=== PATIENT | female | born 1980 | race Caucasian/White ===

== ENCOUNTER 2017-11-04 08:00 | Emergency (ER) | payer OTHER ==
[2017-11-04 08:07] VITALS: BP 148/86; PULSE 123; TEMP 100.3; BMI 32.0
--- NOTE | 2017-11-04 08:31 | PDOC ---
History of Present Illness - General Chief Complaint: Abscess Boil Stated Complaint: ABCESS Time Seen by Provider: 11/04/17 08:25 History Source: Patient Exam Limitations: No Limitations - History of Present Illness Initial Comments: 11/04/17 08:25 37-year-old female presents to the ED with complaints of an abscess to her left inner thigh 3 days. Patient initially squeezed it 2 days ago causing it to worsen in size and discomfort. Patient states no history of these in the past and denies history of MRSA. Patient denies fever, chills radiation of pain, or immunosuppression. Severity: moderate Associated Symptoms: reports: denies symptoms Past History - Travel Traveled outside of the country in the last 30 days: No - Past Medical History Allergies/Adverse Reactions: Allergies Allergy/AdvReac Type Severity Reaction Status Date / Time No Known Allergies Allergy Verified 11/04/17 08:05 Home Medications: Ambulatory Orders Dicyclomine HCl [Bentyl] 20 mg PO Q6H PRN #20 tablet 07/13/15 Ibuprofen [Motrin -] 400 mg PO BID PRN 07/13/15 Ondansetron HCl [Zofran] 4 mg PO BID PRN #10 tablet 07/13/15 Cephalexin [Keflex] 500 mg PO BID #14 capsule 11/04/17 COPD: No - Reproductive History LMP Normal: Yes - Suicide/Smoking/Psychosocial Hx Smoking Status: No Smoking History: Never smoked Have you smoked in the past 12 months: No Number of Cigarettes Smoked Daily: 0 Hx Alcohol Use: No Drug/Substance Use Hx: No Substance Use Type: None Patient Lives Alone: No Lives with/in: spouse/SO Review of Systems - Review of Systems Able to Perform ROS?: Yes Constitutional: No: Symptoms Reported ABD/GI: No: Symptoms Reported : No: Symptoms Reported Musculoskeletal: No: Joint Pain Integumentary: Yes: Erythema, Lumps *Physical Exam - Vital Signs Last Vital Signs Temp Pulse Resp BP Pulse Ox 100.3 F H 123 H 20 148/86 99 11/04/17 08:02 11/04/17 08:02 11/04/17 08:02 11/04/17 08:02 11/04/17 08:02 - Physical Exam General Appearance: Yes: Nourished, Appropriately Dressed. No: Apparent Distress Integumentary: positive: Other (Noted 4 x 4 erythematous firm raised localized cellulitic circular mass to left upper inner thigh with firm center without palpable fluctuance or increased warmth.) Neurologic: positive: Motor Strength 5/5 (ambulatory) Medical Decision Making - Medical Decision Making 11/04/17 08:32 Patient here with tender left inner thigh abscess. On exam patient with erythematous firm abscess without palpable fluctuance. Explained to patient she needs to continue with warm soaks and will prescribe antibiotic. I explained to the patient to return to ED if area worsens or needs to be drained. *DC/Admit/Observation/Transfer Diagnosis at time of Disposition: Abscess - Discharge Dispostion Disposition: HOME Condition at time of disposition: Good - Prescriptions Prescriptions: Cephalexin [Keflex] 500 mg PO BID #14 capsule - Referrals Referrals: Francisco Mancilla MD [Primary Care Provider] - - Patient Instructions Printed Discharge Instructions: DI for Skin Abscess Additional Instructions: Please apply warm soaks to the affected area for the next 2-3 days of constant heat for 15 minutes 4 times a day. Take antibiotics until completed. If area worsens or needs to be treated please return to the ED. - Post Discharge Activity Forms/Work/School Notes: Back to Work
== END 2017-11-04 08:42 | disposition home or self-care (01) ==
LOC: JER 08:00 → JERFT 08:00
DX: L02.416 Cutaneous abscess of left lower limb (principal)
CPT/HCPCS: 99281-25

== ENCOUNTER 2020-04-21 11:34 | Emergency (ER) | payer OTHER ==
[2020-04-21 11:47] VITALS: BMI 29.2
[2020-04-21] MEDS ORDERED: SODIUM CHLORIDE 0.9% 1000 ML INFUS.BAG IV ONE (12:09)
[2020-04-21 12:12] LABS: INR 1.08 (0.82-1.09); PROTHROMBIN TIME (PATIENT) 12.1 SEC (10.2-13.0)
[2020-04-21 12:13] LABS: EOS % 0.5 % (0-4.5); HEMATOCRIT 36.8 % (32.4-45.2); HEMOGLOBIN 12.2 GM/dl (10.7-15.3); LYMPH % 24.1 % (8-40); MCH 30.9 pg (25.7-33.7); MCHC 33.1 g/dl (32.0-36.0); MEAN CELL VOLUME 93.5 fl (80-96); MEAN PLT VOLUME 8.6 fl (7.5-11.1); MONO % 6.3 % (3.8-10.2); NEUT % 68.1 % (42.8-82.8); PLATELET COUNT 243 K/MM3 (134-434); RBC 3.93 M/mm3 (3.60-5.2); RDW 12.7 % (11.6-15.6); WHITE BLOOD COUNT 9.6 K/mm3 (4.0-10.8)
[2020-04-21 12:18] LABS: BILIRUBIN,TOTAL 0.5 mg/dl (0.2-1); CREATININE 0.6 mg/dl (0.55-1.3); POTASSIUM 3.6 mmol/L (3.5-5.1); TOT PROT 7.5 g/dl (6.4-8.2)
--- NOTE | 2020-04-21 13:11 | PDOC ---
History of Present Illness - General Chief Complaint: Pain Stated Complaint: RIGHT LOWER QUADRANT PAIN Time Seen by Provider: 04/21/20 11:38 History Source: Patient Exam Limitations: No Limitations - History of Present Illness Initial Comments: 04/21/20 13:07 Which is a cold 40-year-old female no past medical history here today complaining of right lower quadrant pain. Patient states she does have a history of ovarian cysts and fibroids however today she is here with right lower quadrant pain started today patient states pain is intermittent worse with prolonged standing denies any radiation states it is achy has had some urinary frequency but no dysuria. No fever but she may have chills no nausea no vomiting no change to her bowels. She has also been clinic complaining of a clear whitish vaginal discharge and vaginal itching she saw her regular doctor today Dr. Guy Liu who noted that she had right lower quadrant pain on her exam and sent her in for ED evaluation rule out ovarian pathology or appendicitis Past History - Medical History Allergies/Adverse Reactions: Allergies Allergy/AdvReac Type Severity Reaction Status Date / Time morphine AdvReac Severe Low Blood Verified 04/21/20 13:43 Pressure Home Medications: Ambulatory Orders NK [No Known Home Medication] 04/21/20 COPD: No - Reproductive History Is Patient Now?: No - Psycho-Social/Smoking History Smoking Status: No Smoking History: Never smoked Have you smoked in the past 12 months: No Number of Cigarettes Smoked Daily: 0 Information on smoking cessation initiated: No - Substance Abuse Hx (Audit-C & DAST Scrn) How often the patient has a drink containing alcohol: Never Score: In Men: 4 or > Positive; In Women: 3 or > Positive: 0 Screen Result (Pos requires Nsg. Audit-10AR): Negative In the last yr the pt used illegal drug/Rx for NonMed reason: No Score: Yes response is considered Positive: 0 Screen Result (Positive result requires Nsg. DAST-10): Negative *Physical Exam - Vital Signs Last Vital Signs Temp Pulse Resp BP Pulse Ox 99.5 F 118 H 18 149/96 100 04/21/20 11:35 04/21/20 11:35 04/21/20 11:35 04/21/20 11:35 04/21/20 11:35 - Physical Exam 04/21/20 13:11 Awake alert no acute distress lungs are clear bilaterally heart is regular 30 murmurs rubs or gallops abdomen is soft there is right lower quadrant tenderness mild rebound no guarding pelvic exam shows clear vaginal discharge in the vaginal vault there is mild right adnexal tenderness no CMT neurologically patient is awake alert and oriented x3 skin is warm and dry no rash ED Treatment Course - LABORATORY CBC & Chemistry Diagram: 04/21/20 11:48 04/21/20 11:48 - ADDITIONAL ORDERS Additional order review: Laboratory Results 04/21/20 04/21/20 04/21/20 11:48 11:48 11:48 PT with INR 12.1 INR 1.08 Sodium 136 Potassium 3.6 Chloride 104 Carbon Dioxide 21 Anion Gap 11 BUN 15.0 Creatinine 0.6 Est GFR (CKD-EPI)AfAm 132.14 Est GFR (CKD-EPI)NonAf 114.01 Random Glucose 150 H Calcium 9.0 Total Bilirubin 0.5 AST 23 ALT 23 Alkaline Phosphatase 59 Total Protein 7.5 Albumin 4.0 Urine Color Yellow Urine Appearance Clear Urine pH 5.5 Urine Protein Negative Urine Glucose (UA) Negative Urine Ketones Negative Urine Blood Negative Urine Nitrite Negative Urine Bilirubin Negative Urine Urobilinogen 0.2 Ur Leukocyte Esterase Negative 04/21/20 11:48 RBC 3.93 MCV 93.5 MCHC 33.1 RDW 12.7 MPV 8.6 Neutrophils % 68.1 Lymphocytes % 24.1 Monocytes % 6.3 Eosinophils % 0.5 Basophils % 1.0 - RADIOLOGY Radiology Studies Ordered: Category Date Time Status PELVIC / BLADDER US [US] Routine Ultrasound 04/21/20 Ordered TRANSVAGINAL ULTRASOUND US [US] Stat Ultrasound 04/21/20 12:06 Ordered - Medications Given in the ED: ED Medications Discontinued Medications Generic Name Dose Route Start Last Admin Trade Name Freq PRN Reason Stop Dose Admin Sodium Chloride 1,000 ml 04/21/20 12:09 04/21/20 12:25 Normal Saline - IV 04/21/20 12:10 1,000 ml ONCE ONE Administration Medical Decision Making - Medical Decision Making 04/21/20 13:10 40-year-old female here today with right lower quadrant pain. Differential includes ovarian cyst ovarian torsion renal colic UTI pyelo-or appendicitis. On pelvic exam patient did have right adnexal tenderness concerns for possible ovarian cyst versus torsion will send for transvaginal ultrasound. Transvaginal ultrasound obtained shows cervical nabothian cyst otherwise normal right ovary no free fluid noted. CT abdomen pelvis will be obtained to rule out appendicitis labs reviewed and are normal UA is negative for any pathology 04/21/20 16:01 called to expedite reading ct scan. awaiting results. tvus negative. cervical nabothian cyst 04/21/20 17:[address] is negative for acute appendicitis. Is noted to have fatty liver transvaginal ultrasound is negative with normal ovaries no free fluid noted normal venous and arterial flow. She is noted to have fatty liver on the CT as well as a fibroid discussed findings with the patient she is feeling somewhat improved now however states that she does have this ongoing pressure could be attributed to her fibroid when questioned regarding STD history she does state that she has a history of HSV and had chlamydia 1 year ago would like to be retested her pelvic exam today was negative for any pathological appearing disc harge gonorrhea chlamydia swab will be sent patient was told she will be called for positive results she was also informed that she does have fatty liver needs to abstain from alcohol she will be offered treatment with ceftriaxone and azithromycin for STDs Discharge - Discharge Information Problems reviewed: Yes Clinical Impression/Diagnosis: Abdominal pain Condition: Improved Disposition: HOME - Admission No - Follow up/Referral Referrals: Francisco Mancilla MD [Primary Care Provider] - Ish Church MD [Staff Physician] - - Patient Discharge Instructions Patient Printed Discharge Instructions: Acute Abdominal Pain, Nonalcoholic Fatty Liver Disease Additional Instructions: you need to follow up with a management intern regarding your FAtty Liver. you should obstain from alcohol. you should see a gastroenterolgoist in 1 - 2 weeks. see referral for dr Church, call to schedule. otherwise your cT abdomen and pelvis is negative for appendicitis, or other pathology except fibroid, and fatty liver. your ultrasound of pelvis is unremarkable. you have been tested for gonorrhea, and chlamydia will be called if it is positive. - Post Discharge Activity
[2020-04-21] MEDS ORDERED: ACETAMINOPHEN 1000 MG/100 ML VIAL (NON FORMULARY) IVPB ONE (13:35)
[2020-04-21] MEDS ORDERED: morphine CARPU-JECT 4 MG/1 ML DISP.SYRIN IVPUSH ONE (13:35)
[2020-04-21] MEDS ORDERED: ACETAMINOPHEN INJECTION 100 ML IVPB ONE (13:44)
[2020-04-21 13:48] VITALS: TEMP 98.1
[2020-04-21 17:26] VITALS: BP 133/78; PULSE 99
== END 2020-04-21 17:49 | disposition home or self-care (01) ==
LOC: FER 11:34
PROC: 3E033NZ Introduction of Analgesics, Hypnotics, Sedatives into Peripheral Vein, Percutaneous Approach (ICD-10-PCS; principal; 2020-04-21)
PROC: 3E033GC Introduction of Other Therapeutic Substance into Peripheral Vein, Percutaneous Approach (ICD-10-PCS; 2020-04-21)
DX: R10.9 Unspecified abdominal pain (principal)
CPT/HCPCS: 36415; 74177-TC; 76830-TC; 76856-TC; 80053; 81003; 85025; 85610; 87491; 87591; 87661; 99285-25; J0131